=== PATIENT | female | born 1950 | race American Indian/Alaskan Native ===

== ENCOUNTER 2016-11-11 11:30 | Outpatient (CLI) | payer OTHER ==
--- NOTE | 2016-11-11 12:18 | XRay Report ---
Chest 2 views: History: Chest pain. Findings: Borderline cardiomegaly. Trachea is midline. No consolidation, pneumothorax or pleural effusion. Impression: No acute cardiopulmonary findings.
--- NOTE | 2016-11-11 14:44 | XRay Report ---
Right foot 2 views: History: Right foot pain. Findings: No fracture or dislocation. Arthritic changes in the interphalangeal joints of second third fourth and fifth toes. Focal periosteal reaction at the proximal lateral aspect of the fourth metatarsal probably chronic. No soft tissue calcification. Plantar and dorsal spur posterior calcaneum. Impression: Findings as detailed above. No acute changes.
== END 2016-11-11 11:31 | disposition home or self-care (01) ==
LOC: XRAY 11:30
PROVIDERS: ATTEND Internal Medicine
DX: I63.9 Cerebral infarction, unspecified (principal); J40 Bronchitis, not specified as acute or chronic; R07.9 Chest pain, unspecified; J98.4 Other disorders of lung; M79.671 Pain in right foot
CPT/HCPCS: 71020